=== PATIENT | female | born 1985 | race Caucasian/White ===

== ENCOUNTER 2019-10-27 16:00 | Inpatient (IN) | payer OTHER ==
[~2019-10-27] VITALS: Ht 162.6 cm; Wt 73.0 kg
[2019-10-27] MEDS ORDERED: OXYTOCIN 20 UNITS in LACTATED RINGERS 1,000 ML IV SCH (19:25)
[2019-10-27 19:31] VITALS: BP 111/73
[2019-10-27] MEDS ORDERED: NALBUPHINE 10 MG/ML AMP IVP PRN (19:35)
[2019-10-27] MEDS: LACTATED RINGERS 1,000 ML IV SCH (19:42)
[2019-10-27 20:29] LABS: BASOPHILS % (AUTO) 0.5 % (0.0-2.0); EOSINOPHILS % (AUTO) 0.4 % (0.0-4.0); HEMATOCRIT 38.5 % (36-48); HEMOGLOBIN 12.6 g/dL (12.0-16.0); LYMPHOCYTES # (AUTO) 2.4 K/uL (2.5-16.5); LYMPHOCYTES % (AUTO) 39.1 % (20.5-51.1); MEAN CORPUSCULAR HEMOGLOBIN 30 pg (27-31); MEAN CORPUSCULAR HGB CONC 33 g/dL (33-37); MEAN CORPUSCULAR VOLUME 90.9 fL (80-94); MONOCYTES # (AUTO) 0.7 K/uL (0.8-1.0); MONOCYTES % (AUTO) 11.3 % (1.7-9.3); NEUTROPHILS % (AUTO) 48.7 % (42.2-75.2); PLATELET COUNT (AUTO) 182 K/uL (140-450); RED BLOOD CELL COUNT(AUTO) 4.23 MIL/uL (4.20-5.40); RED CELL DISTRIBUTION WIDTH 16.2 % (11.6-13.7); WHITE BLOOD COUNT (AUTO) 6.1 K/uL (4.8-10.8)
[2019-10-27 20:30] LABS: APPEARANCE,URINE CLEAR (CLEAR); BILIRUBIN,URINE 1+ (NEGATIVE); BLOOD, URINE 3+ (NEGATIVE); COLOR,URINE YELLOW (YELLOW); LEUKOCYTE ESTERASE ,URINE NEGATIVE (NEGATIVE); NITRITE, URINE NEGATIVE (NEGATIVE); PH,URINE 6.5 (5.0-9.0); UGLUCOSE NEGATIVE (NEGATIVE)
[2019-10-27] MEDS ORDERED: SYN.075 PO (20:37)
[2019-10-27 20:47] LABS: RBC,URINE NONE SEEN /HPF (0-5); WBC,URINE NONE SEEN /HPF (0-5)
[2019-10-27] MEDS ORDERED: OXYTOCIN 20 UNITS/LR PREMIX 1,000 ML IV ONE (20:57)
[2019-10-27 20:58] LABS: ALBUMIN 2.8 g/dL (3.4-5.0); ANION GAP 18.1 (8-16); CARBON DIOXIDE 20.4 mmol/L (21-32); CREATININE 0.7 mg/dL (0.6-1.3); POTASSIUM 3.5 mmol/L (3.5-5.1); TOTAL BILIRUBIN 0.3 mg/dL (0.0-1.0)
[2019-10-28] MEDS: LACTATED RINGERS 1,000 ML IV SCH (03:37)
[2019-10-28] MEDS ORDERED: EPIDURAL KEYS MC ONE (04:08)
[2019-10-28] MEDS ORDERED: ROPIVACAINE 0.2%/NS PREMIX 100 ML EPI SCH ×2 (04:25→05:10)
[2019-10-28] MEDS ORDERED: METHYLERGONOVINE 0.2 MG/ML AMP IM PRN (05:55)
[2019-10-28] MEDS ORDERED: SODIUM PHOSPHATE 118 ML ENEM RC PRN (05:55)
[2019-10-28] MEDS ORDERED: oxyCODONE/APAP 5/325 MG 1 TAB TAB PO PRN (05:55)
[2019-10-28] MEDS ORDERED: HYDROcodone/APAP 5/325 MG 1 TAB TAB PO PRN (05:55)
[2019-10-28] MEDS ORDERED: TEMAZEPAM 15 MG CAP PO PRN (05:55)
[2019-10-28] MEDS ORDERED: BENZOCAINE/MENTHOL 20%-0.5% 60 GM CAN TP PRN (05:55)
[2019-10-28] MEDS ORDERED: OXYTOCIN 10 UNITS/ML VIAL IM PRN (05:55)
[2019-10-28] MEDS ORDERED: IBUPROFEN 800 MG TAB PO PRN (06:00)
--- NOTE | 2019-10-28 08:43 | NUR ---
PATIENT HAS BEEN SCREENED AND CATEGORIZED LOW NUTRITION RISK. PATIENT WILL BE SEEN WITHIN 7 DAYS OF ADMISSION. 11/03/[address]
[2019-10-29 06:17] LABS: HEMATOCRIT 33.5 % (36-48)
[2019-10-29] MEDS ORDERED: DOCUSATE SOD/SENNA 50/8.6 MG 1 TAB PO SCH (21:00)
[2019-10-30 10:17] VITALS: BP 106/70
== END 2019-10-30 13:15 | disposition home or self-care (01) | DRG 560 ==
LOC: MFCC 16:00 → UNDOADMIN 16:00 → MFCC 19:26
PROVIDERS: ADMIT Obstetrics & Gynecology; ATTEND Obstetrics & Gynecology
PROC: 10E0XZZ Delivery of Products of Conception, External Approach (ICD-10-PCS; principal; 2019-10-27)
PROC: 10907ZC Drainage of Amniotic Fluid, Therapeutic from Products of Conception, Via Natural or Artificial Opening (ICD-10-PCS; 2019-10-27)
PROC: 3E033VJ Introduction of Other Hormone into Peripheral Vein, Percutaneous Approach (ICD-10-PCS; 2019-10-27)
PROC: 00HU33Z Insertion of Infusion Device into Spinal Canal, Percutaneous Approach (ICD-10-PCS; 2019-10-27)
PROC: 3E0R3BZ Introduction of Anesthetic Agent into Spinal Canal, Percutaneous Approach (ICD-10-PCS; 2019-10-27)
DX: O36.5930 Maternal care for other known or suspected poor fetal growth, third trimester, not applicable or unspecified (principal); Z37.0 Single live birth; Z3A.39 39 weeks gestation of pregnancy
CPT/HCPCS: 36415; 59409; 80053; 81001; 85018; 85025; 86592; 86870; 86886; 86900; 86901; 87086; J2300; J2590; J2795; J7120